=== PATIENT | male | born 1995 | race Caucasian/White ===

== ENCOUNTER 2020-02-27 14:09 | Emergency (ER) | payer OTHER ==
[~2020-02-27] VITALS: Ht 188 cm; Wt 86.2 kg
[2020-02-27] MEDS ORDERED: NAPROSYN500 MG PO (14:54)
[2020-02-27] MEDS ORDERED: ZOFRAN ODT4 MG SUBLING (14:54)
[2020-02-27 14:55] LABS: ABSOLUTE BASOPHILS 0.1 thou/uL (0.0-0.2); ABSOLUTE LYMPHOCYTES 1.2 thou/uL (0.8-5.3); ABSOLUTE MONOCYTES 0.6 thou/uL (0.0-1.2); ABSOLUTE NEUTROPHILS 10.7 thou/uL (1.6-8.1); BASOPHILS 0.4 %; EOSINOPHILS 0.1 %; HEMATOCRIT 45.4 % (42.0-52.0); HEMOGLOBIN 15.8 gm/dL (14.0-18.0); LYMPHOCYTES 9.6 %; MCHC 34.8 g/dL (28.0-37.0); MCV 86.4 fL (80.0-100.0); MPV 7.8 fl. (7.2-11.1); NUCLEATED RBCS 0 /100WBC; PLATELET COUNT* 271 thou/uL (150-400); POLYS 84.9 %; RBC 5.26 mil/uL (4.50-6.00); RDW-CV 13.3 % (10.5-14.5); WBC 12.6 thou/uL (4.0-11.0)
[2020-02-27 15:03] LABS: CALCIUM 9.6 mg/dL (8.5-10.1); CREATININE 0.9 mg/dL (0.6-1.3); POTASSIUM 3.5 mmol/L (3.5-5.1)
[2020-02-27 15:08] LABS: ALBUMIN 4.4 g/dL (3.4-5.0); TOTAL BILIRUBIN 1.4 mg/dL (<0.1-1.0); TOTAL PROTEIN 8.1 g/dL (6.4-8.2)
[2020-02-27 16:04] LABS: APTT 26.3 Seconds (25.0-31.3); INR 1.1; PROTIME 10.8 Seconds (9.20-11.50)
[2020-02-27 16:44] LABS: URINE BILIRUBIN NEGATIVE (Negative); URINE BLOOD NEGATIVE (Negative); URINE CLARITY CLEAR; URINE COLOR YELLOW; URINE GLUCOSE-RANDOM NEGATIVE (Negative); URINE KETONES 1+ (Negative); URINE LEUKOCYTES-REFLEX NEGATIVE (Negative); URINE NITRITE-REFLEX NEGATIVE (Negative); URINE PROTEIN NEGATIVE (Negative); URINE UROBILINOGEN 0.2 E.U./dl (0.2-1.0)
[2020-02-27 16:52] LABS: AMP/METHAMP Negative (Negative); BARBITURATES Negative (Negative); BENZODIAZEPINES Negative (Negative); COCAINE Negative (Negative); METHADONE Negative (Negative); OPIATES Negative (Negative); PCP Negative (Negative); THC Negative (Negative)
[2020-02-27 17:26] VITALS: BP 136/88
--- NOTE | 2020-02-28 08:25 | EKG ---
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: [place] : 1995 Requested By: Kaushik Main Order Number: [id number] MD: King Duran Measurements Intervals [place] Rate: 70 P: 33 MS: 140 QRS: 64 QRSD: 108 T: 49 QT: 383 QTc: 414 Interpretive Statements Sinus rhythm RSR' in V1 or V2, right VCD or RVH No previous ECG available for comparison Electronically Signed On 02-28-2020 8:23:39 CDT by King Duran [email or web address] <ELECTRONICALLY SIGNED> By: King Duran MD, [facility] 02/28/20 0823 1438 1438 King Duran MD, [facility] /EPI
== END 2020-02-27 17:20 | disposition short-term general hospital (02) ==
LOC: M.ERS 14:09
PROVIDERS: Family Medicine
DX: I63.9 Cerebral infarction, unspecified (principal); R51 Headache; R11.2 Nausea with vomiting, unspecified; R42 Dizziness and giddiness